=== PATIENT | female | born 2005 | race American Indian/Alaskan Native ===

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

== ENCOUNTER 2024-04-18 22:42 | Emergency (ER) | payer BC, SELFPAY ==
[2024-04-18 22:43] VITALS: BP 109/74
--- NOTE | 2024-04-18 23:23 | ED.GENMED ---
History of Present Illness
<MATEUS Tyler - Last Filed: 04/19/24 03:47>
General
Chief Complaint: Abdominal Pain
Source: patient
Exam Limitations: none
Time Seen by Provider: 04/18/24 23:08
Nursing documentation reviewed up to this point in time: agreed with
History of Present Illness
History of Present Illness:
Patient is a 18yo F w/ hx of painful periods and small ovarian cyst (unsure what side) presents to the ED w/ abd sxs x2 days. She states yesterday she noticed the RLQ of abdomen was hard. Reports abd pain started today. Describes the pain as
constant, throbbing, 7.5/10. Position does not effect pain. Tried taking Advil and Tylenol w/o relief. States she has never felt pain like this before. Admits to some on/off nausea. Denies V/D/C and dysuria. Currently on period, started yesterday.
Denies recent illness. Pt is currently sexually active w/ 1 partner. Has had >1 partner in past. Never tested for STIs. Uses condoms. Denies recent new partners.
Review of Systems
<MATEUS Tyler - Last Filed: 04/19/24 03:47>
Review of Systems
Allergies reviewed?: Yes
Constitutional: Denies fever, fatigue or chills
EENT: Denies sore throat or runny nose
Respiratory: Denies cough or trouble breathing
Cardiac: Denies chest pain or palpitations
ABD/GI: Reports abdominal pain and nausea; Denies vomiting, diarrhea or constipated
: Denies dysuria, frequency or discharge
Skin: Denies itching or rash
Neurological: Denies dizzy, headache, weakness or numbness
Phy Exam
<MATEUS Tyler - Last Filed: 04/19/24 03:47>
General Physical Exam
General Presentation: moderate distress
General age: appears stated age
General Skin: warm and dry
General Habitus: normal
General Mental: tearful
Cardiovascular Exam
Cardiovascular Exam: regular rate/rhythm, no gallop and no murmur
Pulmonary Exam
Pulmonary Exam: lungs clear and no respiratory distress
Gastrointestinal Exam
Gastrointestinal Exam: normal bowel sounds and other (mildly distended RLQ. No rebound tenderness. Negative psoas, obturator, rovsing tests. )
Palpation: right upper quadrant: Mild tenderness and right lower quadrant: Mild tenderness
Neurological Exam
Neurological Exam: alert, oriented x3, no motor deficits, no sensory deficits and speech normal
Course
<Emily Peña PAOLA - Last Filed: 04/19/24 03:47>
Orders/Labs/Results
Orders:
Orders
04/18/24 23:17
Iohexol [Omnipaque] See Protocol PO NOW STA
Test Result ONCE
04/18/24 23:33
Complete Blood Count/With Diff Urgent
Comprehensive Metabolic Panel Urgent
HCG, Serum Qualitative Screen Urgent
Lipase Urgent
Prothrombin Time Urgent
Urinalysis Reflex To Culture Urgent
Date Specimen was Collected: 04/18/24
Time Specimen was Collected: 23:22
Blood Culture Q30M
YEE Source: Blood/Venous
Specimen Description:
04/19/24 00:00
Blood Culture Q30M
YEE Source: Blood/Venous
Specimen Description:
04/19/24 01:30
CT Abd/pel W Iv And Oral Contr Urgent
Reason For Exam: RLQ abd pain
04/19/24 02:08
US Pelvis Only (non-obstetric) Urgent
Comment:
Reason For Exam: right sided pain
04/19/24 03:29
Ibuprofen [Motrin] 600 mg .ROUTE .STK-MED ONE
Ibuprofen [Motrin] 600 mg PO NOW STA
Abnormal Lab Results
04/18/24
23:33
MPV 10.9 H fL
(7.4-10.4)
Absolute Monos (auto) 0.8 H 10^3/uL
(0.1-0.6)
Urine Ketones 2+ A
(Negative)
04/18/24 23:33
04/18/24 23:33
US Pelvis: Normal uterus. Endometrium 5mm. Nonenlarged ovaries w/ normal vascular flow. Dominant follicle L 1.4cm. No pelvic free fluid.
Vital Signs
Initial and Last Documented VS:
Initial Vital Signs
Temp Pulse Resp BP Pulse Ox
98.3 F 73 18 109/74 100
04/18/24 22:43 04/18/24 22:43 04/18/24 22:43 04/18/24 22:43 04/18/24 22:43
Last Documented Vital Signs
Temp Pulse Resp BP Pulse Ox
98.3 F 73 18 107/72 98
04/18/24 22:43 04/18/24 22:43 04/18/24 22:43 04/19/24 02:00 04/19/24 03:15
<Fausto Copeland, DO - Last Filed: 04/19/24 03:27>
Orders/Labs/Results
Orders:
Orders
04/18/24 23:17
Iohexol [Omnipaque] See Protocol PO NOW STA
Test Result ONCE
04/18/24 23:33
Complete Blood Count/With Diff Urgent
Comprehensive Metabolic Panel Urgent
HCG, Serum Qualitative Screen Urgent
Lipase Urgent
Prothrombin Time Urgent
Urinalysis Reflex To Culture Urgent
Date Specimen was Collected: 04/18/24
Time Specimen was Collected: 23:22
Blood Culture Q30M
YEE Source: Blood/Venous
Specimen Description:
04/19/24 00:00
Blood Culture Q30M
YEE Source: Blood/Venous
Specimen Description:
04/19/24 01:30
CT Abd/pel W Iv And Oral Contr Urgent
Reason For Exam: RLQ abd pain
04/19/24 02:08
US Pelvis Only (non-obstetric) Urgent
Comment:
Reason For Exam: right sided pain
04/19/24 03:29
Ibuprofen [Motrin] 600 mg .ROUTE .STK-MED ONE
Ibuprofen [Motrin] 600 mg PO NOW STA
Abnormal Lab Results
04/18/24
23:33
MPV 10.9 H fL
(7.4-10.4)
Absolute Monos (auto) 0.8 H 10^3/uL
(0.1-0.6)
Urine Ketones 2+ A
(Negative)
04/18/24 23:33
04/18/24 23:33
Vital Signs
Initial and Last Documented VS:
Initial Vital Signs
Temp Pulse Resp BP Pulse Ox
98.3 F 73 18 109/74 100
04/18/24 22:43 04/18/24 22:43 04/18/24 22:43 04/18/24 22:43 04/18/24 22:43
Last Documented Vital Signs
Temp Pulse Resp BP Pulse Ox
98.3 F 73 18 107/72 98
04/18/24 22:43 04/18/24 22:43 04/18/24 22:43 04/19/24 02:00 04/19/24 03:15
<MATEUS Tyler - Last Filed: 04/19/24 03:47>
MDM/Problems Addressed
Differential Diagnosis Includes:
Considering appendicitis, new/ruptured ovarian cyst, PID, ectopic . Less concern for appendicitis due to lack of fever and typical appendicitis sxs. Will do imaging and STD panel.
<MATEUS Tyler - Last Filed: 04/19/24 03:47>
*Critical Care Note
Total Time (30-74mins, 75-104mins- exclusive of procedures): Not Applicable
<MATEUS Tyler - Last Filed: 04/19/24 03:47>
Update Note
Update Note:
04/19/2024 02:15 AM - No evidence of appendicitis or any bowel inflammation on CT. Will do US to assess pelvis and reproductive organs. Pt states pain is about the same. Some improvement w/ laying on back w/ legs twisted to side.
ED Attending Note
<MATEUS Tyler - Last Filed: 04/19/24 03:47>
-
Portions of this chart may have been created with voice recognition software.� Occasional wrong word or��sound alike� substitutions may have occurred due to the inherent limitations of voice recognition software.
<Fausto Copeland DO - Last Filed: 04/19/24 03:27>
ED Attending Note
Patient seen and examined by attending physician: Yes
I performed the substantive portion of visit, reviewed & personally made and approve the management plan that is documented in note by myself or IVELISSE.: Yes
ED Attending Note:
Pleasant 18-year-old female who presents with 24 hours of right lower quadrant abdominal pain. She states that the pain has been progressively worsening since yesterday. She does report some nausea. She does state that the pain is exacerbated by
jarring motions. She denies fever but mom stated that she felt warm when she got into the emergency department this evening. Tonight the pain worsened the patient stated that she lost her appetite. She denies any previous abdominal surgeries.
She states that her menstrual cycle began yesterday but this pain is distinctly different in both location and intensity. She reports normal bowel movements. Is urinating normally. Does not feel that she could be . She takes no
medications on a daily basis. Patient did take Tylenol and Advil, without relief.
Discharge Plan
Departure
Patient Disposition: Home (Routine Discharge)
Date of Disposition: 04/19/24
Time of Disposition: 03:26
Patient with high blood pressure during this ER visit?: No
Condition: Good
Discharge Problem:
Abdominal pain
Instructions: Abdominal Pain
Prescriptions:
No Action
No Current Medications
0
Referrals:
Alayna Noriega MD [Family Provider] -
Stand Alone Forms: Back to School, Return to Work
Activity Restrictions/Additional Instructions:
It was a pleasure meeting you and taking part in your care. We hope for your continued healing and wellness.
Please read discharge instructions in their entirety. However, they are for general education and may not describe your exact diagnosis at discharge. Information on your ER visit and medical conditions were discussed with you along with appropriate
follow up information...
If indicated, please take your medications as instructed and indicated on discharge paperwork.
Please schedule a follow up appointment as directed. Call to schedule an appointment
Please return to the emergency department with ANY change in, persisting, or worsening of symptoms. If any of your symptoms do not improve, or persist, or become more severe within 6-12 hours, please return to the emergency department for further
care.
Please return to the emergency department if you develop a headache, neck pain/stiffness, fever greater than 100.4F, chest pain, shortness of breath, persistent nausea, vomiting, slurred speech, difficulty walking, numbness/tingling, weakness, signs
of infection or any other symptoms that are worrisome to you.
If you have any questions or concerns please do not hesitate to call the Hospital at or E-mail me directly at [email or web address]
Interventions
Interventions:
*Risk Screen - Suicide Last Done: 04/18/24 22:43
*General Assessment Last Done: 04/18/24 22:43
*Neglect/Abuse Screening Last Done: 04/18/24 22:43
ED- Fall Risk Assessment Last Done: 04/18/24 23:57
*ED COVID-19 Vaccine History Last Done: 04/19/24 03:36
*Nursing Disposition Last Done: 04/19/24 03:36
AY-Kefbtv-Gtjdgdsupd Assessment Last Done: 04/18/24 23:57
Discharge Date and Time
Discharge Date/Time: 04/19/24 03:36
Print Language: ITALIAN
[2024-04-18] MEDS: OMNIPAQUE 50 ML PO (23:29)
[2024-04-18 23:31] VITALS: BMI 20.5
[2024-04-18 23:38] VITALS: BP 116/85
[2024-04-19] VITALS: BP 109/74
[2024-04-19 00:03] LABS: % Basophils 0.4 % (0-2); % Eosinophils 1.3 % (0-6); % Immature Granulocytes 0.2 % (0-0.5); % Lymphocytes 35.9 % (20.5-51.1); % Monocytes 8.1 % (1.7-9.3); % Neutrophils 54.1 % (42.2-75.2); Absolute Eosinophils 0.1 10^3/uL (0-0.7); Absolute Lymphocytes 3.4 10^3/uL (1.2-3.4); Absolute Monocytes 0.8 10^3/uL (0.1-0.6); Absolute Neutrophils 5.1 10^3/uL (1.4-6.5); Hematocrit 37.8 % (37.0-47.0); Hemoglobin 12.6 g/dL (12.0-16.0); Mean Corp Hgb Conc. 33.3 g/dL (33.0-37.0); Mean Platelet Volume 10.9 fL (7.4-10.4); Nucleated Red Blood Cells % 0 %; Platelet Count 270 10^3/uL (130-400); Red Cell Dist. Width 12.7 % (11.5-14.5); White Blood Cell Count 9.4 10^3/uL (4.8-10.8)
[2024-04-19 00:04] LABS: HCG, Serum Qualitative Screen Negative
[2024-04-19 00:07] LABS: INR 1.08; PT 14.3 Sec (11.4-14.6)
[2024-04-19 00:10] LABS: ALT (SGPT) 21 U/L (0-35); AST (SGOT) 26 U/L (14-36); Albumin 4.5 g/dl (3.5-5.0); Alkaline Phosphatase 57 U/L (38-126); Blood Urea Nitrogen 14 mg/dl (7-17); Calcium 9.7 mg/dl (8.4-10.2); Carbon Dioxide 26 mmol/L (22-30); Chloride 103 mmol/L (98-107); Estimated Creatinine Clearance 102 ml/min; Glucose 90 mg/dl (70-99); Lipase 71 U/L (23-300); Potassium 3.8 mmol/L (3.5-5.1); Sodium 139 mmol/L (135-145); Total Bilirubin 0.4 mg/dl (0.2-1.3); Total Protein 7.1 g/dl (6.3-8.2); eGFR > 60.00
[2024-04-19 00:12] LABS: Urine Albumin Negative (Neg - Trace); Urine Bilirubin Negative (Negative); Urine Character Clear (Clear); Urine Color Yellow; Urine Glucose Negative (Negative); Urine Ketone 2+ (Negative); Urine Leukocyte Negative (Negative); Urine Nitrite Negative (Negative); Urine Occult Blood Negative (Negative); Urine Specific Gravity 1.015 (<1.030); Urine Urobilinogen Negative (Neg - 1+); Urine pH 6.5 (5.0-9.0)
[2024-04-19 01:05] VITALS: BP 104/66
[2024-04-19 02:00] VITALS: BP 107/72
[2024-04-19] MEDS: MOTRIN 600 MG PO (03:32)
== END 2024-04-19 03:36 | disposition home or self-care (01) ==
LOC: EMR 22:42
PROVIDERS: EMERGENCY PHYSICIAN Student in an Organized Health Care Education/Training Program; FAMILY PHYSICIAN Pediatrics
DX: R10.31 Right lower quadrant pain (principal)
CPT/HCPCS: 99284; 74177; 76856; 80053; 81003; 83690; 84703; 85025; 85610; 87040; Q9967

== ENCOUNTER 2024-07-25 13:05 | Emergency (ER) | payer SELFPAY ==
[2024-07-25 13:27] VITALS: BP 103/79
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
[2024-07-25 15:21] VITALS: BP 106/80
== END 2024-07-25 15:22 | disposition home or self-care (01) ==
LOC: EMR 13:05
PROVIDERS: EMERGENCY PHYSICIAN Emergency Medicine; FAMILY PHYSICIAN Pediatrics
DX: S06.0X0A Concussion without loss of consciousness, initial encounter (principal); V40.5XXA Car driver injured in collision with pedestrian or animal in traffic accident, initial encounter
CPT/HCPCS: 99283